=== PATIENT | female | born 1970 | race Two or more races ===

== ENCOUNTER 2021-03-31 20:10 | Emergency (ER) | payer MEDICAID ==
[~2021-03-31] VITALS: Ht 157.5 cm; Wt 72.6 kg
--- NOTE | 2021-03-31 20:20 | NUR ---
PATIENT BIBSELF C/O RIGHT FLANK PAIN FOR THE PAST 2 WEEKS GOT WORSE TODAY. PATIENT IS A/O X 4, RR EVEN AND UNLABORED, NO SIGNS OF SOB NOTED. PATIENT IN BED, CONNECTED TO MONITOR.
--- NOTE | 2021-03-31 20:23 | NUR ---
URINE SPECIMEN COLLECTED AND SENT TO LAB
[2021-03-31 20:30] LABS: BACTERIA,URINE Few /HPF (None Seen); BILIRUBIN,URINE Negative (NEGATIVE); COLOR,URINE YELLOW (YELLOW); LEUKOCYTE ESTERASE ,URINE Small (NEGATIVE); NITRITE, URINE Negative (NEGATIVE); PH,URINE 5.5 (5.0-8.0); PROTEIN,URINE Negative (NEGATIVE); SQUAMOUS EPITHELIAL CELL,UR Few /HPF (None Seen); UGLUCOSE Negative (NEGATIVE); UROBILINOGEN,URINE 0.2 EU/dL (0.2)
[2021-03-31] MEDS ORDERED: KETOROLAC TROMETHAMINE INJ 60 MG/2 ML VIAL IM ONE (20:30)
[2021-03-31] MEDS ORDERED: KETOROLAC TROMETHAMINE INJ 30 MG/ML VIAL ONE (20:42)
[2021-03-31] MEDS ORDERED: CYCL5TAB PO (21:48)
[2021-03-31] MEDS ORDERED: NAPR-1164 PO (21:48)
--- NOTE | 2021-03-31 22:00 | NUR ---
Patient discharged to home in stable condition. Written and verbal after care instructions given. Patient verbalizes understanding of instruction.
[2021-03-31 22:08] VITALS: BP 134/76
== END 2021-03-31 22:00 | disposition home or self-care (01) ==
LOC: ER 20:40
DX: M62.830 Muscle spasm of back (principal)
CPT/HCPCS: 71045; 76770; 81001; 84703; 87086; 96372; 99285; J1885

== ENCOUNTER 2021-08-20 11:51 | Emergency (ER) | payer MEDICAID ==
[~2021-08-20] VITALS: Ht 160 cm; Wt 72.6 kg
[~2021-08-20 11:51] MED LIST: CYCL5TAB PO; NAPR-1164 PO
[2021-08-20 12:08] VITALS: BP 115/70
--- NOTE | 2021-08-20 12:10 | NUR ---
BIBS FOR C/O COUGH AND CONGESTION X 3 DAYS. C/O LEFT EAR PAIN 8/10. IN ROOM AIR AND DENIES SOB. RESPIRATION REGULAR AND UNLABORED. WILL CONTINUE TO MONITOR THE PATIENT.
--- NOTE | 2021-08-20 12:26 | NUR ---
Patient discharged to home in stable condition. Written and verbal after care instructions given. Patient verbalizes understanding of instruction.
== END 2021-08-20 12:26 | disposition home or self-care (01) ==
LOC: ER 11:54
DX: Z20.822 Contact with and (suspected) exposure to COVID-19 (principal); H92.02 Otalgia, left ear
CPT/HCPCS: 99283; C9803; U0003

== ENCOUNTER 2022-07-08 16:04 | Emergency (ER) | payer MEDICAID, OTHER ==
[~2022-07-08] VITALS: Ht 157.5 cm; Wt 73.9 kg
--- NOTE | 2022-07-08 16:20 | NUR ---
BIBS C/O SUBCONJUNCTIVAL HEMORRHAGE X 1 WEEK, R EYE, ASSOC. WITH ON & OFF HEADACHE.
--- NOTE | 2022-07-08 17:30 | NUR ---
SEEN AND EXAMINED BY
[2022-07-08 18:25] VITALS: BP 127/80
--- NOTE | 2022-07-08 18:28 | NUR ---
Patient discharged to home in stable condition. Written and verbal after care instructions given. Patient verbalizes understanding of instruction.
== END 2022-07-08 18:28 | disposition home or self-care (01) ==
LOC: ER 16:13
DX: H11.31 Conjunctival hemorrhage, right eye (principal); R51.9 Headache, unspecified; Z79.899 Other long term (current) drug therapy

== ENCOUNTER 2022-12-11 16:13 | Emergency (ER) | payer OTHER ==
[~2022-12-11] VITALS: Ht 157.5 cm; Wt 74.8 kg
--- NOTE | 2022-12-11 16:30 | NUR ---
Patient AOx4 able to eexpress own concrns. Patient stable, VSS. Discussed plan of care, pt verbalized agreement.
--- NOTE | 2022-12-11 16:33 | NUR ---
Urine collected and sent to lab
[2022-12-11] MEDS ORDERED: NITROFURANTOIN/MONOHYDRATE MACROCRYSTALS 100 MG CAPSULE PO ONE (17:00)
[2022-12-11] MEDS ORDERED: IBUPROFEN 600 MG TABLET PO ONE (17:00)
[2022-12-11] MEDS ORDERED: NITROFURANTOIN/MONOHYDRATE MACROCRYSTALS 100 MG CAPSULE ONE (17:13)
[2022-12-11] MEDS ORDERED: IBUPROFEN 600 MG TABLET ONE (17:13)
[2022-12-11] MEDS ORDERED: NITR100C6 PO (17:33)
--- NOTE | 2022-12-11 17:40 | NUR ---
Discussed discharge plan with patient, paperwork provided and prescripton information, patient verbalized agreement.
[2022-12-11 17:41] VITALS: BP 128/60
== END 2022-12-11 17:42 | disposition home or self-care (01) ==
LOC: ER 16:23
DX: N39.0 Urinary tract infection, site not specified (principal); Z87.440 Personal history of urinary (tract) infections
CPT/HCPCS: 87086-TC

== ENCOUNTER 2025-05-20 09:56 | Emergency (ER) | payer MEDICAID, OTHER ==
[~2025-05-20] VITALS: Ht 160 cm; Wt 72.6 kg
[~2025-05-20 09:56] MED LIST changes: +NITR100C6 PO
[2025-05-20 10:42] LABS: APPEARANCE,URINE CLEAR (CLEAR); BLOOD, URINE Negative Ery/uL (NEGATIVE); LEUKOCYTE ESTERASE ,URINE Trace (NEGATIVE); UGLUCOSE Negative (NEGATIVE)
[2025-05-20 10:45] LABS: NITRITE, URINE NEGATIVE (NEGATIVE); PREGNANCY TEST URINE QUAL NEGATIVE (NEGATIVE)
[2025-05-20 10:52] LABS: ADD URINE CULTURE NO; SQUAMOUS EPITHELIAL CELL,UR Few /HPF (None Seen)
[2025-05-20] MEDS ORDERED: FLUC150T PO (11:56)
[2025-05-20 12:33] VITALS: BP 140/80; TEMP 97.7; O2SAT 98
== END 2025-05-20 12:33 | disposition home or self-care (01) ==
LOC: ER 10:06
DX: N89.8 Other specified noninflammatory disorders of vagina (principal)
CPT/HCPCS: 81001; 84703-TC; 87210-TC

== ENCOUNTER 2025-07-09 10:02 | Emergency (ER) | payer MEDICAID ==
[~2025-07-09] VITALS: Ht 160 cm; Wt 74.8 kg
[~2025-07-09 10:02] MED LIST changes: +FLUC150T PO
[2025-07-09 10:06] VITALS: BP 115/71; TEMP 98.7; O2SAT 98
[2025-07-09] MEDS ORDERED: IBUP-1955 PO (11:35)
== END 2025-07-09 12:18 | disposition home or self-care (01) ==
LOC: ER 10:13
DX: S82.125A Nondisplaced fracture of lateral condyle of left tibia, initial encounter for closed fracture (principal); S90.32XA Contusion of left foot, initial encounter; S90.812A Abrasion, left foot, initial encounter; W10.9XXA Fall (on) (from) unspecified stairs and steps, initial encounter; Y93.89 Activity, other specified; Y92.89 Other specified places as the place of occurrence of the external cause; Y99.8 Other external cause status
CPT/HCPCS: 73564-TC; 73630-TC